=== PATIENT | female | born 1985 | race Caucasian/White ===

== ENCOUNTER 2017-11-28 10:10 | Inpatient (IN) | payer OTHER, SELFPAY ==
[2017-11-20 11:13] VITALS: BMI 29.4
[2017-11-28] VITALS (19 sets, daily range): BP systolic 95–115; BP diastolic 49–70; PULSE 86–107; RESP 11–21; TEMP 36.4–36.9; O2SAT 96–100
[2017-11-28] MEDS: Lactated Ringers 1,000 ML 999 ML IV (10:50)
[2017-11-28 11:25] LABS: Absolute Lymphocyte Count 2.54 X10^3/ul (0.83-4.51); Absolute Neutrophil Count 6.9 X10^3/uL (2.0-7.7); Basophil# 0.03 X10^3/uL; Basophil% 0.3 % (0-1); Eosinophil# 0.08 X10^3/uL; Eosinophils% 0.8 % (0-5); Hematocrit 35.8 % (37-47); Lymphocyte # 2.54 X10^3/ul (4.0); Mean Corp Hgb Conc 33.5 g/gl (32-36); Mean Corpuscular Hgb 29.1 pg (27.0-32.0); Mean Corpuscular Volume 86.9 fL (81-99); Mean Platelet Vol. 9.8 fl (6.2-12.0); Monocyte% 8.5 % (0-10); Neutrophil # 6.94 X10^3/uL (2.7-7.7); Neutrophil % 65.6 % (47-70); Platelet Count 237 K/mm3 (150-450); RBC Distribution Width CV 13.4 % (11.6-14.6); RBC Distribution Width SD 42.5 fl (35.1-43.9); Red Blood Count 4.12 M/mm3 (4.2-5.4); White Blood Count 10.6 K/mm3 (4.4-11.0)
[2017-11-28 11:26] LABS: POSITIVE COUNT NO; POSITIVE DIFFERENTIAL NO; POSITIVE MORPHOLOGY NO
[2017-11-28] MEDS: Lactated Ringers 1,000 ML 150 ML IV (11:46)
[2017-11-28] MEDS: Sodium Citrate/Citric Acid 30 ML UDC PO (11:46)
[2017-11-28] MEDS: Cefazolin 2 GM in 0.9% Normal Saline 100 ML IV (11:46)
--- NOTE | 2017-11-28 11:59 | PCM.HP.OB ---
- Problem List (1) Previous section complicating Status: Acute History Date of Admission: 11/28/17 Final TANGELA: 12/03/17 Gestational age: 39 Weeks and 2 Days History of this : This is a 32 year-old, G [], P [], at 38 weeks gestational age. Allergies No Known Allergies Allergy (Verified 11/20/17 11:08) Home Medications: Home Medications Vits [Prenatabs FA] 1 tablet PO DAILY 11/20/17 Smoking Status: Never smoker Alcohol: None Number of Fetus(es): 1 Heart Tracing: Reactive History Past Pregnancies: Past Pregnancies Delivery Date Name GA/Weeks Outcome Route Weight Infant Gender Labor Length Anesthesia Delivery Location Provider FOB Review of Systems Constitutional: Denies: Anorexia Eyes: Denies: Blurred vision HEENT: Denies: Difficulty Hearing, Difficulty Swallowing Cardiovascular: Denies: Chest Pain Respiratory: Denies: Cough Gastrointestinal: Denies: Abdominal Pain Genitourinary: Reports: Frequency Musculoskeletal: Reports: Back Pain Skin: Denies: Rash Neurological: Denies: Balance problems Psychiatric: Denies: Anxiety, Depression Hematologic/ Lymphatic: Denies: Adenopathy Physical Exam General: Alert, Oriented x3, Cooperative Cardiovascular: Regular rate Lungs: Clear to auscultation Abdomen: Bowel Sounds Present Extremities:: No clubbing, No edema Neurological: Cranial nerves II-XII grossly intact 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 Plan for repeat cesaeran section GBS positive, HSV positive
--- NOTE | 2017-11-28 12:05 | HP.PCM_ITS ---
- Problem List (1) Previous section complicating Status: Acute History Date of Admission: 11/28/17 Final TANGELA: 12/03/17 Gestational age: 39 Weeks and 2 Days History of this : This is a 32 year-old, G [], P [], at 38 weeks gestational age. Allergies No Known Allergies Allergy (Verified 11/20/17 11:08) Home Medications: Home Medications Vits [Prenatabs FA] 1 tablet PO DAILY 11/20/17 Smoking Status: Never smoker Alcohol: None Number of Fetus(es): 1 Heart Tracing: Reactive History Past Pregnancies: Past Pregnancies Delivery Date Name GA/Weeks Outcome Route Weight Infant Gender Labor Length Anesthesia Delivery Location Provider FOB Review of Systems Constitutional: Denies: Anorexia Eyes: Denies: Blurred vision HEENT: Denies: Difficulty Hearing, Difficulty Swallowing Cardiovascular: Denies: Chest Pain Respiratory: Denies: Cough Gastrointestinal: Denies: Abdominal Pain Genitourinary: Reports: Frequency Musculoskeletal: Reports: Back Pain Skin: Denies: Rash Neurological: Denies: Balance problems Psychiatric: Denies: Anxiety, Depression Hematologic/ Lymphatic: Denies: Adenopathy Physical Exam General: Alert, Oriented x3, Cooperative Cardiovascular: Regular rate Lungs: Clear to auscultation Abdomen: Bowel Sounds Present Extremities:: No clubbing, No edema Neurological: Cranial nerves II-XII grossly intact 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 Plan for repeat cesaeran section GBS positive, HSV positive
[2017-11-28] MEDS: Oxytocin 30 units/NS 500 ml 30 UNITS/500 ML IV.SOLN 167 UNITS IV (12:37)
--- NOTE | 2017-11-28 13:09 | PCM.OB.CSR ---
- Problem List (1) Previous section complicating Status: Acute Delivery Final TANGELA: 12/03/17 Gestational age: 39 Weeks and 2 Days Indications for : Repeat Elective Description of Procedure: Preoperative diagnosis: previous , desires repeat Postoperative diagnosis: same and viable male infant Procedure: Repeat low transverse section Surgeon: Ese EBL: 600 mL Fluids: crystalloids Pham placed to straight drain special medications Ancef Pitocin complications none YEISON was taken to the operating room where spinal anesthesia was obtained without difficulty she was then placed with a leftward tilt prepped and draped in the standard sterile fashion. An Allis clamp was used to make sure she was adequately anesthetized. I excised her previous scar with a scalpel and carried the incision down to the level of the fascia with the scalpel. I incised the fascia with the scalpel and extended laterally with Liz scissors. The rectus muscles were sharply from the fascia. The rectus muscles were naturally the peritoneum was entered during the dissection of the fascia from the rectus muscles bladder blade was placed a low transverse incision was made on the uterus with a scalpel and extended laterally bluntly. The 's head was then brought up through the incision using fundal pressure the infant's head anterior left shoulder and then remainder of the body were delivered easily the placenta was delivered manually the uterus was exteriorized. The uterus was cleared of all clots and debris and repaired with 0 Vicryl in a running and locked fashion. A second 0 Vicryl was used to imbricate the first layer. Uterus was noted to be hemostatic. The uterus was placed back inside the peritoneal cavity. The gutters were cleared of all clots and debris. Irrigation was used. No active bleeding was noted.. Peritoneum was then closed with 2-0 Vicryl in a running fashion. The rectus muscles reapproximated with interrupted 2-0 Vicryl sutures. The fascia was closed with an 0 Vicryl in a running fashion. Subcutaneous tissues were copiously irrigated. The subcutaneous tissues were reapproximated using a 3-0 Vicryl. Skin was closed with a 4-0 Vicryl in a subarticular fashion. Dermabond was placed across the incision. Procedure was then terminated all instruments were were counted and correct as well as the sponge and needle count. She was taken to the recovery room in stable and satisfactory condition.
--- NOTE | 2017-11-28 13:20 | NURSING ---
Dermabond over incision. Incision clean, dry, and intact.
--- NOTE | 2017-11-28 14:40 | NURSING ---
Call placed to Dr Solis , patient has had 2 sets of small clots and now mod to large amount lochia, giving methergine 0.2 mg im and order noted for cytotec in one hour x1 dose of 100 mcg
[2017-11-28] MEDS: Methylergonovine 0.2 MG/ML Ampul IM (14:43)
[2017-11-28] MEDS: miSOPROStol 200 MCG Tablet 100 MCG PO (15:59)
--- NOTE | 2017-11-28 16:40 | NURSING ---
1400 ekg strip printed and mounted in chart.
[2017-11-28] MEDS: 0.9% Saline Lock 10 ML Syringe IV (18:37)
[2017-11-28] MEDS: Ketorolac 30 MG/ML Syringe IV (18:37)
[2017-11-28] MEDS: Lactated Ringers 1,000 ML 100 ML IV (21:06)
[2017-11-29] VITALS (10 sets, daily range): BP systolic 95–116; BP diastolic 49–62; PULSE 86–100; RESP 16–18; TEMP 36.4–37.4; O2SAT 98–100
[2017-11-29] MEDS: Ketorolac 30 MG/ML Syringe IV ×4 (00:22→18:21)
[2017-11-29 05:09] LABS: Hematocrit 29.9 % (37-47); Hemoglobin 9.8 g/dl (12.0-15.0); Mean Corp Hgb Conc 32.8 g/gl (32-36); Mean Corpuscular Hgb 28.7 pg (27.0-32.0); Mean Corpuscular Volume 87.4 fL (81-99); Mean Platelet Vol. 9.7 fl (6.2-12.0); Platelet Count 188 K/mm3 (150-450); RBC Distribution Width CV 13.5 % (11.6-14.6); RBC Distribution Width SD 43.5 fl (35.1-43.9); Red Blood Count 3.42 M/mm3 (4.2-5.4); White Blood Count 13.6 K/mm3 (4.4-11.0)
[2017-11-29 05:22] LABS: Scan Indicated on CBC? Y/N NO
[2017-11-29] MEDS: Lactated Ringers 1,000 ML 100 ML IV (06:23)
--- NOTE | 2017-11-29 08:33 | PCM.PN.OB ---
Patient Problems: Active and Suspected Problems Previous section complicating (Acute) Subjective: Doing well. Ambulating. Baby doing well. There is some concern about an undescended testicle. - Physical Exam General: Alert, Oriented x3, Cooperative, No apparent distress, Well developed, Well nourished HEENT: Atraumatic Neck: Supple Lungs: Normal air movement Abdomen: Soft, - - appropriately tender. Incision bruised inferiorly, healing well. Extremities: No clubbing, No edema Skin: No rashes Neurological: Cranial nerves II-XII grossly intact Psych/Mental Status: Normal Affect, Appropriate Vital Signs Temp Pulse Resp BP Pulse Ox 97.6 F L 89 18 95/53 L 98 11/29/17 04:00 11/29/17 07:00 11/29/17 07:00 11/29/17 07:00 11/29/17 07:00 Oxygen Delivery Method Room Air Weight: 182 lb 5.156 oz Body Mass Index (BMI) 29.4 Intake and Output for Last 24 Hours 11/27/17 11/28/17 11/29/17 23:59 23:59 23:59 Intake Total 3250 / 3250 1974 Output Total 3450 / 3450 1200 / 1200 Balance -200 / -200 775 / 775 Laboratory Tests Past 24 Hrs 11/28/17 11/28/17 11/29/17 10:50 10:50 04:20 WBC 10.6 13.6 H RBC 4.12 L 3.42 L Hgb 12.0 9.8 L Hct 35.8 L 29.9 L MCV 86.9 87.4 MCH 29.1 28.7 MCHC 33.5 32.8 RDW 13.4 13.5 RDW Differential 42.5 43.5 Plt Count 237 188 MPV 9.8 9.7 Immature Gran % (Auto) 0.800 Neut % (Auto) 65.6 Lymph % (Auto) 24.0 [place] % (Auto) 8.5 Eos % (Auto) 0.8 Baso % (Auto) 0.3 Absolute Neuts (auto) 6.9 Absolute Lymphs (auto) 2.54 Total Counted Not Reportable Blood Type O POSITIVE Antibody Screen NEGATIVE Medical Necessity - Tobacco Use Smoking Status: Never smoker Assessment/Plan All Active Problems Previous section complicating (Acute) Encourage ambulation. Probable discharge tomorrow.
--- NOTE | 2017-11-29 08:39 | PCM.DCVAG ---
Discharge Activity: Return to Normal Activity, May not drive while taking narcotic pain medications. May shower in (days): 0 May resume sexual activity in: 6 weeks Lifting Restrictions: No lifting > 20 pounds Call your doctor if your incision/area has: Sudden Increased Bleeding, Increased Pain/ Swelling, Increased Redness, Foul Smelling Discharge, Swelling at the incision site Call your doctor if you observe: Fever of 101 or Higher, Inability to urinate, Inability to have a bowel movement, Using more than one pad per hour, Shortness of breath, Dizziness, Fainting spells, Chest pain, Calf discomfort, Uncontrolled pain Cleanse incision/area with: Soap & Water Additional Instructions: If you experience any of the following, contact your healthcare provider. Bleeding that soaks a pad every hour for 2 hours Fever 100.4 or higher Unrelieved incision or abdominal pain Swelling, redness, discharge or bleeding from your incision or episiotomy site Your incision begins to separate Problems urinating (including inability to urinate or burning while urinating). Visual changes Severe headache Flu-like symptoms Pain or redness in one of both of your breasts Pain, warmth, tenderness or swelling in your legs, especially the calf area Frequent nausea and vomiting Symptoms of depression or anxiety If you experience any of the following, call 911 or go to the nearest Emergency Room. Chest pain Problems breathing Seizure activity Partial or complete paralysis of a body part, slurred speech, weakness or drooping of the face, or a sudden inability to walk or hold your balance Allergies/Adverse Reactions: Allergies No Known Allergies Allergy (Verified 11/20/17 11:08) Medications to take at Discharge Vits [Prenatabs FA ] 1 tablet PO DAILY 11/20/17 Acetaminophen [Tylenol] 1,000 mg PO Q8H PRN tablet 11/29/17 Oxycodone [Oxyir] 5 mg PO Q4H PRN PRN 5 Days #20 tab 11/29/17 The following prescriptions were given: Oxycodone [Oxyir] 5 mg PO Q4H PRN PRN 5 Days #20 tab PRN Reason: Mod-Severe Pain (4-10) Please Follow Up With: Erinn Mulligan MD - 2 weeks Primary Care Physician: Care Physician,No Primary [Primary Care Provider] - Test Results: Test results from this visit will be discussed in further detail at your follow-up appointment, if applicable. Proposed Discharge Date: 11/30/17
--- NOTE | 2017-11-29 08:49 | DCINST_ITS ---
Discharge Activity: Return to Normal Activity, May not drive while taking narcotic pain medications. May shower in (days): 0 May resume sexual activity in: 6 weeks Lifting Restrictions: No lifting > 20 pounds Call your doctor if your incision/area has: Sudden Increased Bleeding, Increased Pain/ Swelling, Increased Redness, Foul Smelling Discharge, Swelling at the incision site Call your doctor if you observe: Fever of 101 or Higher, Inability to urinate, Inability to have a bowel movement, Using more than one pad per hour, Shortness of breath, Dizziness, Fainting spells, Chest pain, Calf discomfort, Uncontrolled pain Cleanse incision/area with: Soap & Water Additional Instructions: If you experience any of the following, contact your healthcare provider. * Bleeding that soaks a pad every hour for 2 hours * Fever 100.4 or higher * Unrelieved incision or abdominal pain * Swelling, redness, discharge or bleeding from your incision or episiotomy site * Your incision begins to separate * Problems urinating (including inability to urinate or burning while urinating) . * Visual changes * Severe headache * Flu-like symptoms * Pain or redness in one of both of your breasts * Pain, warmth, tenderness or swelling in your legs, especially the calf area * Frequent nausea and vomiting * Symptoms of depression or anxiety If you experience any of the following, call 911 or go to the nearest Emergency Room. * Chest pain * Problems breathing * Seizure activity * Partial or complete paralysis of a body part, slurred speech, weakness or drooping of the face, or a sudden inability to walk or hold your balance Allergies/Adverse Reactions: Allergies No Known Allergies Allergy (Verified 11/20/17 11:08) Medications to take at Discharge Vits [Prenatabs FA ] 1 tablet PO DAILY 11/20/17 Acetaminophen [Tylenol] 1,000 mg PO Q8H PRN tablet 11/29/17 Oxycodone [Oxyir] 5 mg PO Q4H PRN PRN 5 Days #20 tab 11/29/17 The following prescriptions were given: Oxycodone [Oxyir] 5 mg PO Q4H PRN PRN 5 Days #20 tab PRN Reason: Mod-Severe Pain (4-02/18) Please Follow Up With: Erinn Mulligan MD - 2 weeks Primary Care Physician: Care Physician,No Primary [Primary Care Provider] - Test Results: Test results from this visit will be discussed in further detail at your follow- up appointment, if applicable. Proposed Discharge Date: 11/30/17
[2017-11-29] MEDS: Acetaminophen 500 MG Tablet 1000 MG PO (10:45)
--- NOTE | 2017-11-29 10:55 | NURSING ---
pt c/o pain in rt shoulder when taking a deep breath; vs WNL pt given gas x and tylenol, encouraged to walk after resting on left side for 30 minutes; lungs clear and equal with good air exchange, resp easy and unlabored;
[2017-11-29] MEDS: 0.9% Saline Lock 10 ML Syringe IV ×2 (11:52→18:21)
--- NOTE | 2017-11-29 12:01 | NURSING ---
pt denies any further shoulder pain
[2017-11-29] MEDS: oxyCODONE 5 MG Tablet PO ×2 (16:43→23:29)
[2017-11-29] MEDS: Senna/Docusate Sodium 1 Tablet PO (23:30)
[2017-11-30] MEDS: Ketorolac 30 MG/ML Syringe IV ×3 (00:58→11:27)
[2017-11-30] MEDS: 0.9% Saline Lock 10 ML Syringe IV ×3 (00:59→11:28)
[2017-11-30 02:50] VITALS: BP 93/53; PULSE 92; RESP 16; TEMP 36.7
[2017-11-30 08:00] VITALS: BP 115/55; PULSE 90; RESP 18; TEMP 36.3; O2SAT 97
[2017-11-30] MEDS: Acetaminophen 500 MG Tablet 1000 MG PO (10:47)
--- NOTE | 2017-11-30 11:21 | DCINST_ITS ---
Discharge Diet: No Restrictions Discharge Activity: Return to Normal Activity, May not drive while taking narcotic pain medications. May shower in (days): 0 May resume sexual activity in: 6 weeks Lifting Restrictions: 20 pounds Additional Activity Instructions:: Nothing in the vagina for 4-6 weeks. You may return to work/school in 6 weeks. Call your doctor if your incision/area has: Sudden Increased Bleeding, Increased Pain/ Swelling, Increased Redness, Foul Smelling Discharge, Swelling at the incision site Call your doctor if you observe: Fever of 101 or Higher, Inability to urinate, Inability to have a bowel movement, Using more than one pad per hour, Shortness of breath, Dizziness, Fainting spells, Chest pain, Calf discomfort, Uncontrolled pain Suture Line Care: Avoid Pulling/Pushing, Avoid Pinching/Bending Cleanse incision/area with: Soap & Water Additional Instructions: If you experience any of the following, contact your healthcare provider. * Bleeding that soaks a pad every hour for 2 hours * Fever 100.4 or higher * Unrelieved incision or abdominal pain * Swelling, redness, discharge or bleeding from your incision or episiotomy site * Your incision begins to separate * Problems urinating (including inability to urinate or burning while urinating) . * Visual changes * Severe headache * Flu-like symptoms * Pain or redness in one of both of your breasts * Pain, warmth, tenderness or swelling in your legs, especially the calf area * Frequent nausea and vomiting * Symptoms of depression or anxiety If you experience any of the following, call 911 or go to the nearest Emergency Room. * Chest pain * Problems breathing * Seizure activity * Partial or complete paralysis of a body part, slurred speech, weakness or drooping of the face, or a sudden inability to walk or hold your balance Allergies/Adverse Reactions: Allergies No Known Allergies Allergy (Verified 11/20/17 11:08) Medications to take at Discharge Vits [Prenatabs FA ] 1 tablet PO DAILY 11/20/17 Acetaminophen [Tylenol] 1,000 mg PO Q8H PRN tablet 11/29/17 Oxycodone [Oxyir] 5 mg PO Q4H PRN PRN 5 Days #20 tab 11/29/17 The following prescriptions were given: Oxycodone [Oxyir] 5 mg PO Q4H PRN PRN 5 Days #20 tab PRN Reason: Mod-Severe Pain (4-02/18) Follow-Up: Call to make an appointment with your doctor for an incision check in 1-2 weeks. You will also need a 6 week post- follow up appointment. Test results from this visit will be discussed in further detail at your follow- up appointment, if applicable. Please Follow Up With: Symone Jeffery MD - Call to make an appointment for an incision check in 1-2 [phone] When: You will need a post- check in 6 weeks. Primary Care Physician: Care Physician,No Primary [Primary Care Provider] - Proposed Discharge Date: 11/30/17
--- NOTE | 2017-11-30 11:21 | PCM.PN.OB ---
Patient Problems: Active and Suspected Problems Previous section complicating (Acute) Subjective: doing well no complaints pain controlled. some issues breast feeding - Physical Exam General: Alert, Oriented x3 Vital Signs Temp Pulse Resp BP Pulse Ox 97.3 F L 90 18 115/55 L 97 11/30/17 08:00 11/30/17 08:00 11/30/17 08:00 11/30/17 08:00 11/30/17 08:00 Oxygen Delivery Method Room Air Weight: 182 lb 5.156 oz Body Mass Index (BMI) 29.4 Intake and Output for Last 24 Hours 11/28/17 11/29/17 11/30/17 23:59 23:59 23:59 Intake Total 3250 / 3250 2148 / 2148 Output Total 3450 / 3450 2400 / 2400 Balance -200 / -200 -252 / -252 Medical Necessity - Tobacco Use Smoking Status: Never smoker Assessment/Plan All Active Problems Previous section complicating (Acute) s/p RLTCS POD 2 doing well routine care dc home today discussed support PRN
== END 2017-11-30 11:58 | disposition home or self-care (01) | DRG 766 ==
PROVIDERS: Admitting Provider Obstetrics & Gynecology; Visit Provider Obstetrics & Gynecology
PROC: 10D00Z1 Extraction of Products of Conception, Low, Open Approach (ICD-10-PCS; CPT 59514; principal; 2017-11-28 11:45)
DX: O34.211 Maternal care for low transverse scar from previous cesarean delivery (principal); Z3A.39 39 weeks gestation of pregnancy; Z37.0 Single live birth
CPT/HCPCS: 85025; 85027; 86850; 86900; 99218; J7120; A4216; G0378